=== PATIENT | female | born 1940 | race Caucasian/White ===

== ENCOUNTER 2017-01-29 17:33 | Inpatient (IN) | payer MEDICARE, MEDICAID ==
[~2017-01-29] VITALS: Ht 152.4 cm; Wt 70.3 kg
--- NOTE | 2017-01-29 17:37 | NUR ---
[id number] FROM URGENT CARE: NON-RADIATING SHART CHEST PAIN. SEND TO R/O PE. PLACED ON MONITOR. AWAITING MD ORDER
[2017-01-29 18:13] LABS: BASOPHILS # (AUTO) 0.1 /CMM (0.0-0.2); BASOPHILS % (AUTO) 0.7 % (0.0-2.0); EOSINOPHILS # (AUTO) 0.1 /CMM (0.0-0.7); EOSINOPHILS % (AUTO) 0.6 % (0.0-6.0); HEMATOCRIT 37 % (33-45); HEMOGLOBIN 12.2 g/dL (11.5-14.8); LYMPHOCYTES # (AUTO) 3.8 /CMM (0.8-4.8); LYMPHOCYTES % (AUTO) 28.1 % (20.0-44.0); MEAN CORPUSCULAR HEMOGLOBIN 28 PG (26.0-33.0); MEAN CORPUSCULAR HGB CONC 33 g/dl (31.0-36.0); MEAN CORPUSCULAR VOLUME 86 fL (82-100); MONOCYTES # (AUTO) 1.1 /CMM (0.1-1.30); MONOCYTES % (AUTO) 7.9 % (2.0-12.0); NEUTROPHILS # (AUTO) 8.6 /CMM (1.8-8.9); NEUTROPHILS % (AUTO) 62.7 % (43.0-81.0); PLATELET COUNT (AUTO) 327 /CMM (150-450); RDW COEFFICIENT OF VARIATION 11.9 (11.5-15.0); RED BLOOD CELL COUNT(AUTO) 4.32 MIL/uL (4.0-5.2); WHITE BLOOD COUNT (AUTO) 13.7 K/uL (4.3-11.0)
--- NOTE | 2017-01-29 18:15 | NUR ---
TICKET DISPENSER CHANGER AT BEDSIDE
[2017-01-29 18:26] LABS: CALCIUM, SERUM 9.3 mg/dL (8.5-10.1); CARBON DIOXIDE 26 mmol/L (21-32); CHLORIDE 101 mmol/L (98-107); CREATININE 1.1 mg/dL (0.6-1.3); GLUCOSE 92 mg/dL (74-106); POTASSIUM 3.8 mmol/L (3.5-5.1); SODIUM SERUM 136 mmol/L (136-145); UREA NITROGEN, BLOOD 10 mg/dL (7-18)
[2017-01-29 18:29] LABS: INR 0.97 (0.87-1.13); PROTHROMBIN TIME 10.1 SECS (9.5-12.7)
[2017-01-29 18:35] LABS: TROPONIN I < 0.017 ng/mL (0.00-0.056)
[2017-01-29] MEDS ORDERED: ONDANSETRON HCL/PF 4 MG/2 ML VIAL ONE (18:51)
[2017-01-29] MEDS ORDERED: CEFTRIAXONE 1GM BAG (ER ONLY) 50 ML IV ONE ×2 (19:00→19:24)
[2017-01-29] MEDS ORDERED: AZITHROMYCIN 250 MG TABLET PO ONE (19:00)
[2017-01-29] MEDS ORDERED: MORPHINE SULFATE INJ 2 MG/ML DISP.SYRIN IV ONE (19:00)
[2017-01-29] MEDS ORDERED: ONDANSETRON HCL/PF 4 MG/2 ML VIAL IVP ONE (19:00)
--- NOTE | 2017-01-29 19:02 | NUR ---
Report rec'd from GENE Brown for [facility].
--- NOTE | 2017-01-29 19:05 | NUR ---
called lab for blood culture draw.
--- NOTE | 2017-01-29 19:10 | NUR ---
PRINCIPAL PROCESS ENGINEER IS AT THE BEDSIDE FOR BLOOD CULTURE DRAW.
[2017-01-29] MEDS ORDERED: AZITHROMYCIN 250 MG TABLET ONE (19:24)
--- NOTE | 2017-01-29 19:26 | NUR ---
CALLED [facility] RN TRIAGE WAS PAGED.
[2017-01-29] MEDS ORDERED: ALBUTEROL FS 2.5 MG/3 ML VIAL.NEB NEB PRN (20:00)
[2017-01-29] MEDS ORDERED: MAG HYDROX/AL HYDROX/SIMETH 30 ML UDC PO PRN (20:00)
[2017-01-29] MEDS ORDERED: Z GUARD REMEDY 2 OZ OINT TP PRN (20:00)
[2017-01-29] MEDS ORDERED: ACETAMINOPHEN 325 MG TABLET PO PRN (20:00)
[2017-01-29] MEDS ORDERED: ZOLPIDEM TARTRATE 5 MG TABLET PO PRN (20:00)
[2017-01-29] MEDS ORDERED: HYDROCODONE/APAP 5/325MG 1 EACH TABLET PO PRN (20:00)
[2017-01-29] MEDS ORDERED: MAGNESIUM HYDROXIDE 30 ML UDC PO PRN (20:00)
[2017-01-29] MEDS ORDERED: ONDANSETRON HCL/PF 4 MG/2 ML VIAL IVP PRN (20:00)
--- NOTE | 2017-01-29 20:00 | NUR ---
TELE/RN NOTES VITAL SIGNS: ZD=234/66 HR=82 RESP=18 TEMP=97.8F ORAL FAT9=375% ON 2L O2 Addendum: 01/29/17 at 2245 by ANAT MA RN WRONG TIME WAS AT 3348
--- NOTE | 2017-01-29 20:05 | NUR ---
PT AMBULATED TO THE BATHROOM.
[2017-01-29 20:10] VITALS: BP 129/78
--- NOTE | 2017-01-29 20:10 | NUR ---
PT AMBULATED BACK TO BED #4.
--- NOTE | 2017-01-29 20:30 | NUR ---
TELE/RN OPENING NOTES PT RECEIVED FROM ER VIA [facility], ACCOMPANIED BY DAUGHTER. PT WAS PLACED ON 2L O2 VIA NC, BREATHING EVEN AND UNLABORED. DENIES SOB BUT C/O RIGHT CHEST PAIN 8-11/17. PLACED ON TELE MONITOR SHOWING SINUS RHYTHM WITH HEART RATE AT 85.IV TO LEFT HAND PATENT AND INTACT. ORIENTED PT TO ROOM AND CALL LIGHT. BED IN LOW/LOCKED POSITION WITH CALL LIGHT IN REACH. SIDE RAILS UPX2. WILL CONTINUE TO MONITOR
--- NOTE | 2017-01-29 20:55 | NUR ---
TELE/RN NOTES SPOKE TO DR. KATE, INFORMED HER OF PT'S PAIN 8-9/10 SHARP RIGHT CHEST PAIN. ORDERED TO GIVE NORCO FOR NOW AND ORDERED MORPHINE 4MG Q4H IV PRN FOR SEVERE PAIN. ORDERS NOTED AND CARRIED OUT.
[2017-01-29] MEDS ORDERED: HYDROMORPHONE INJ 2 MG/ML DISP.SYRIN IV PRN (21:00)
[2017-01-29] MEDS ORDERED: ENOXAPARIN SODIUM 40 MG/0.4 ML DISP.SYRIN SQ SCH (21:00)
--- NOTE | 2017-01-29 21:20 | NUR ---
TELE/RN NOTES CALLED DR. KATE TO NOTIFY HER THAT PATIENT WOULD LIKE TO LEAVE AMA.
--- NOTE | 2017-01-29 21:30 | NUR ---
TELE/RN NOTES DISCUSSED WITH DECORATOR CONSULTANT, PATIENT AND FAMILY ABOUT RISKS OF LEAVING AMA. ENCOURAGED PT AND FAMILY TO STAY OVERNIGHT AND INFORMED THEM THAT PT WILL NEED TO BE SEEN AND CLEARED BY LIGHTER CAPTAIN, HOSPITALIST AND WRAPPER STRIPPER. PT DOES NOT WANT TO STAY IF WE ARE "ONLY GOING TO BE TREATING HER PAIN OVERNIGHT AND BECAUSE OF THE HOLIDAY, MAY NOT BEEN SEEN BY LIGHTER CAPTAIN UNTIL FRIDAY". PT AND FAMILY VERBALIZED UNDERSTANDING OF RISKS OF SIGNING AMA HOWEVER INSISTED ON LEAVING AND STATED IF SYMPTOMS REOCCUR THEY "WILL COME BACK". ENCOURAGED PT TO GO TO NEAREST ER IF SYMPTOMS DUE REOCCUR.
--- NOTE | 2017-01-29 21:40 | NUR ---
TELE/RN NOTES PT SIGNED AMA FORM, PLACED IN CHART. IV AND HEART MONITOR REMOVED. ID BAND REMOVED. ASSISTED PT INTO PERSONAL CLOTHES. ALL BELONGINGS SENT WITH PT.
[2017-01-29] MEDS ORDERED: ATORVASTATIN 40 MG TABLET PO SCH (22:00)
[2017-01-30] MEDS ORDERED: ASPIRIN 81 MG TAB.CHEW PO SCH (09:00)
[2017-01-30] MEDS ORDERED: CEFTRIAXONE 1 G in IV D5W 50 ML IV SCH ×2 (17:00→20:00)
[2017-01-30] MEDS ORDERED: AZITHROMYCIN 250 MG TABLET PO SCH (20:00)
== END 2017-01-29 21:40 | disposition left against medical advice (07) | DRG 315 ==
LOC: ER 17:35 → TELE 19:55
PROVIDERS: ADMIT Internal Medicine; ATTEND Internal Medicine
DX: I31.9 Disease of pericardium, unspecified (principal); I50.32 Chronic diastolic (congestive) heart failure; I11.0 Hypertensive heart disease with heart failure; D72.829 Elevated white blood cell count, unspecified; E03.9 Hypothyroidism, unspecified; E78.5 Hyperlipidemia, unspecified; K21.9 Gastro-esophageal reflux disease without esophagitis
CPT/HCPCS: 36415; 71010-TC; 80048-TC; 83880; 84484-TC; 85025-TC; 85730-TC; 87040-TC; 87081-TC; A4606; J0696; J1650; J2405; Z7610